=== PATIENT | female | born 1995 | race African-American/Black ===

== ENCOUNTER 2022-10-21 17:58 | Inpatient (IN) | payer OTHER ==
[~2022-10-21] VITALS: Ht 170.2 cm; Wt 125.2 kg
[2022-10-21] MEDS ORDERED: ONDANSETRON 4 MG/2 ML VIAL IVP PRN (18:40)
[2022-10-21] MEDS ORDERED: MORPHINE SULFATE 10 MG/ML VIAL IVP PRN (18:40)
[2022-10-21] MEDS ORDERED: OXYTOCIN 20 UNITS in LACTATED RINGERS 1,000 ML IV SCH (18:40)
[2022-10-21 19:45] LABS: BASOPHILS % (AUTO) 0.3 % (0.0-2.0); EOSINOPHILS # (AUTO) 0.1 K/uL (0-0.4); HEMATOCRIT 35.6 % (36-48); HEMOGLOBIN 11.5 g/dL (12.0-16.0); LYMPHOCYTES # (AUTO) 1.8 K/uL (2.5-16.5); LYMPHOCYTES % (AUTO) 19.7 % (20.5-51.1); MEAN CORPUSCULAR HEMOGLOBIN 26 pg (27-31); MEAN CORPUSCULAR HGB CONC 32 g/dL (33-37); MEAN CORPUSCULAR VOLUME 78.8 fL (80-94); MONOCYTES # (AUTO) 0.5 K/uL (0.8-1.0); MONOCYTES % (AUTO) 5.6 % (1.7-9.3); NEUTROPHILS # (AUTO) 6.6 K/uL (1.8-7.7); NEUTROPHILS % (AUTO) 73.4 % (42.2-75.2); PLATELET COUNT (AUTO) 340 K/uL (140-450); RED BLOOD CELL COUNT(AUTO) 4.51 MIL/uL (4.20-5.40); RED CELL DISTRIBUTION WIDTH 17.3 % (11.6-13.7); WHITE BLOOD COUNT (AUTO) 9.1 K/uL (4.8-10.8)
[2022-10-21 19:48] LABS: APPEARANCE,URINE CLEAR (CLEAR); BILIRUBIN,URINE NEGATIVE (NEGATIVE); BLOOD, URINE NEGATIVE (NEGATIVE); COLOR,URINE YELLOW (YELLOW); LEUKOCYTE ESTERASE ,URINE NEGATIVE (NEGATIVE); NITRITE, URINE NEGATIVE (NEGATIVE); PROTEIN,URINE NEGATIVE (NEGATIVE); UGLUCOSE NEGATIVE (NEGATIVE); UROBILINOGEN,URINE 0.2 EU/dL (0.2 - 1)
[2022-10-21 19:57] LABS: INR 0.84 (0.8-1.2); PARTIAL THROMBOPLASTIN TIME 27.4 secs (22-35.6); PROTHROMBIN TIME 8.9 secs (10.8-13.4)
[2022-10-21 20:04] LABS: ALBUMIN 2.8 g/dL (3.4-5.0); ANION GAP 15.9 (8-16); CALCIUM 9.3 mg/dL (8.5-10.1); CARBON DIOXIDE 22.7 mmol/L (21-32); CREATININE 0.5 mg/dL (0.6-1.3); POTASSIUM 3.6 mmol/L (3.5-5.1); TOTAL BILIRUBIN 0.3 mg/dL (0.0-1.0); TOTAL PROTEIN, SERUM 7.2 g/dL (6.4-8.2)
[2022-10-21] MEDS ORDERED: MISOPROSTOL 25 MCG TAB ONE (20:57)
[2022-10-21] MEDS: LACTATED RINGERS 1,000 ML IV SCH ×2 (21:01→22:54)
[2022-10-22] MEDS: MISOPROSTOL 25 MCG TAB VG SCH ×4 (03:01→23:09)
[2022-10-22] MEDS: LACTATED RINGERS 1,000 ML IV SCH ×2 (06:29→12:15)
[2022-10-23 00:50] VITALS: BP 110/56; PULSE 89; RESP 18; O2SAT 98
[2022-10-23] MEDS: LACTATED RINGERS 1,000 ML IV SCH ×3 (00:56→17:31)
[2022-10-23] MEDS ORDERED: NALBUPHINE 10 MG/ML AMP IVP PRN (03:50)
[2022-10-23] MEDS: MISOPROSTOL 25 MCG TAB VG SCH ×2 (06:08→06:10)
[2022-10-23] MEDS ORDERED: LACTATED RINGERS 500 ML IV SCH (08:40)
[2022-10-23] MEDS ORDERED: CARBOPROST 250 MCG/ML AMP IM PRN (08:40)
[2022-10-23] MEDS ORDERED: METHYLERGONOVINE 0.2 MG/ML AMP IM PRN (08:40)
[2022-10-23] MEDS ORDERED: OXYTOCIN 20 UNITS/LR PREMIX 1,000 ML IV ONE (10:52)
[2022-10-23] MEDS ORDERED: ROPIVACAINE 0.2%/NS PREMIX 200 ML EPI ONE (12:41)
[2022-10-23] MEDS ORDERED: fentaNYL citrate 0.05 MG/ML VIAL ONE (12:41)
[2022-10-24] MEDS ORDERED: MEASLES, MUMPS, AND RUBELLA 1 VIAL SQVAC ONE (01:45)
[2022-10-24] MEDS ORDERED: IBUPROFEN 800 MG TAB PO PRN (01:45)
[2022-10-24] MEDS ORDERED: BENZOCAINE/MENTHOL 20%-0.5% 60 GM CAN TP PRN (01:45)
[2022-10-24] MEDS ORDERED: OXYTOCIN 10 UNITS/ML VIAL IM PRN (01:45)
[2022-10-24] MEDS ORDERED: METHYLERGONOVINE 0.2 MG/ML AMP IM PRN (01:45)
[2022-10-24] MEDS ORDERED: METHYLERGONOVINE 0.2 MG TAB PO PRN (01:45)
[2022-10-25 06:21] LABS: HEMATOCRIT 35.2 % (36-48); HEMOGLOBIN 11.4 g/dL (12.0-16.0)
== END 2022-10-25 10:50 | disposition home or self-care (01) | DRG 560 ==
LOC: MLD 17:58 → MFCC 10-24 02:49
PROVIDERS: ADMIT Obstetrics & Gynecology; ATTEND Obstetrics & Gynecology
PROC: 3E0R3BZ Introduction of Anesthetic Agent into Spinal Canal, Percutaneous Approach (ICD-10-PCS; 2022-10-23)
PROC: 00HU33Z Insertion of Infusion Device into Spinal Canal, Percutaneous Approach (ICD-10-PCS; 2022-10-23)
PROC: 10E0XZZ Delivery of Products of Conception, External Approach (ICD-10-PCS; principal; 2022-10-24)
DX: O14.94 Unspecified pre-eclampsia, complicating childbirth (principal); Z37.0 Single live birth; O62.3 Precipitate labor; Z20.822 Contact with and (suspected) exposure to COVID-19; Z3A.39 39 weeks gestation of pregnancy
CPT/HCPCS: 36415; 59409; 76815; 80053; 81003; 85018; 85025; 85610; 85730; 86592; 86762; 86886; 86900; 86901; 87340; J2270; J2300; J2405; J2590; J2795; J3010; Q0092